=== PATIENT | male | born 1995 | race Caucasian/White ===

== ENCOUNTER 2020-09-15 18:04 | Emergency (ER) | payer OTHER, SELFPAY ==
[2020-09-15 18:04] VITALS: BP 138/80; PULSE 80; RESP 16; TEMP 36.2; O2SAT 99; BMI 25.0
--- NOTE | 2020-09-15 19:26 | ED.DCSUM_ITS ---
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 He states this started a couple of days ago while he was lifting a box at work. He felt a slight twinge in his had increasing pain on the right lower aspect of his back since then. He is tried heat but does not seem to help. Patient has no loss of bladder or bowel control. No urinary retention. He said no direct trauma to the back. He states this is similar to previous injuries. Past Medical History - Allergies and Home Meds Allergies/Adverse Reactions: Allergies No Known Allergies Allergy (Verified 09/15/20 18:06) Primary Care Physician: NOT,DEFINED [Primary Care Provider] - Prior records reviewed: Yes Past Medical History: - - History of back injury Surgical History: noncontributory Lives: Spouse/ Significant Other Smoking Status: Never smoker Alcohol: None Drugs: None Review of Systems General: Denies: Chills, Fever, Sweats Eyes: Denies: Visual changes - bilaterally, Diplopia ENT: Denies: Rhinorrhea, Sore throat Cardiovascular: Denies: Chest pain, Palpitations Respiratory: Denies: Dyspnea, Cough, Dyspnea on exertion Gastrointestinal: Denies: Abdominal pain, Nausea, Vomiting, Diarrhea, Melena, Hematochezia Musculoskeletal: Reports: Back pain. Denies: Extremity Pain Skin: Denies: Rash, Wounds Neurological: Denies: Headache, Weakness, Numbness Physical Exam Vital Signs/Narrative: Vital Signs Temp Pulse Resp BP Pulse Ox 09/15/20 18:04 97.1 F L 80 16 138/80 H 99 General: Well nourished, Well developed, No Acute Distress Head: Normocephalic, Atraumatic Eyes: Perrl, EOMI ENT: Moist mucous membranes, No rhinorrhea Neck: Supple, Nontender Cardiovascular: Regular rate, Regular rhythm, No murmurs Respiratory: No distress, CTA bilaterally, Chest nontender Abdomen: Soft, Nontender, Nondistended, Normal bowel sounds Back: - - Right lumbar paraspinal muscular tenderness. No midline spinal deformity or step-off. Skin: Normal color, No rash, Cyanosis Neurological: Alert, Oriented x3 Psychological: Normal affect, Normal Mood Diagnostic/Tx/Re-eval - Medical Decision Making Patient presenting with acute exacerbation of chronic back pain. He states he feels he just overdid it lifting the other day. He states he does not believe he could go to work because he has heavy lifting to do there. He will be given a work note for this. Patient also was given Naprosyn and Flexeril for home. He was given a shot of Toradol in the ED. I do not believe he needs imaging at this time. He is given return precautions. He does not wish to file Workmen's Comp. even though this happened at work. Impression: 1. Lumbar strain ED Disposition - Plan for ED Patient: Disposition: Home or Assisted Living Instructions: ED LUMBAR SPRAIN/STRAIN Prescriptions: Cyclobenzaprine HCl 10 mg PO Q8H PRN PRN #21 tab PRN Reason: pain Transmission Status: Received by [facility] Naproxen [Naprosyn] 500 mg PO BID PRN #30 tab Transmission Status: Received by [facility] Referrals: NOT,DEFINED [Primary Care Provider] -
[2020-09-15] MEDS: Ketorolac 15 MG/ML Vial IM (19:36)
[2020-09-15 20:01] VITALS: RESP 18
== END 2020-09-15 20:01 | disposition home or self-care (01) ==
PROVIDERS: Emergency Provider Student in an Organized Health Care Education/Training Program
DX: S39.012A Strain of muscle, fascia and tendon of lower back, initial encounter (principal); X50.0XXA Overexertion from strenuous movement or load, initial encounter; Y93.89 Activity, other specified; Y92.89 Other specified places as the place of occurrence of the external cause; Y99.0 Civilian activity done for income or pay
CPT/HCPCS: 96372; 99281